=== PATIENT | male | born 1955 | race Two or more races ===

== ENCOUNTER 2023-01-27 18:58 | Inpatient (IN) | payer OTHER, MEDICARE, MEDICAID ==
[~2023-01-27] VITALS: Ht 172.7 cm; Wt 82.8 kg
[2023-01-27] MEDS ORDERED: HYDROmorphone HCL 2 MG/ML VL/or syr IM ONE (20:45)
[2023-01-27 21:17] LABS: Urine Bacteria NONE SEEN /hpf (None Seen); Urine Blood Negative /uL (Negative); Urine Hyaline Cast MANY /lpf (0 - 2); Urine WBC <1 /hpf (0 - 3)
[2023-01-27 21:29] LABS: Basophils # (auto) 0 10 ^3/uL (0-0.2); Basophils % (auto) 0.9 % (0.0-2.0); Eosinophils # (auto) 0.1 10 ^3/uL (0-0.8); Eosinophils % (auto) 4.4 % (0.0-7.0); Hematocrit 34.3 % (41.0-53.0); Hemoglobin 11.4 g/dL (13.5-17.5); Lymphocytes # (auto) 0.4 10 ^3/uL (0.4-5.4); Lymphocytes % (auto) 13.2 % (10.0-50.0); Mean Corpuscular Hemoglobin 30.3 pg (28.0-32.0); Mean Corpuscular Hgb Conc. 33.3 g/dL (32.0-36.0); Mean Corpuscular Volume 90.8 fL (80.0-100.0); Monocytes # (auto) 0.3 10 ^3/uL (0-1.3); Monocytes % (auto) 8.5 % (0.0-12.0); Neutrophils # (auto) 2.4 10 ^3/uL (1.6-8.6); Nucleated Red Blood Cells % 0.1 %; Red Blood Cells 3.78 10^6/uL (4.5-5.90); Red Cell Distribution Width 15.8 % (11.8-14.3); White Blood Cell 3.3 10^3/uL (4.4-10.8)
[2023-01-27 21:31] LABS: Potassium 4.6 mmol/L (3.5-5.1)
[2023-01-27 21:37] LABS: Albumin 2.6 g/dL (3.4-5.0); BUN/Creatinine Ratio 28.4; Bilirubin, Total 0.9 mg/dL (0.2-1.0); Calcium 7.8 mg/dL (8.5-10.1)
[2023-01-28] MEDS ORDERED: INSULIN LISPRO (HUMAN) 100 UNITS/ML ML SC ONE (00:15)
[2023-01-28] MEDS ORDERED: HYDROcodone-ACET 5/325MG TAB PO PRN (01:15)
[2023-01-28] MEDS ORDERED: METOCLOPRAMIDE HCL 5MG/ml INJ 2ml VIAL IV PRN (01:15)
[2023-01-28] MEDS ORDERED: hydrALAZINE HCL 20 MG/ML VL IV PRN (01:15)
[2023-01-28] MEDS ORDERED: ALBUMIN 25% 100 ML IV ONE (01:15)
[2023-01-28] MEDS ORDERED: FUROSEMIDE 20 MG/2 ML VIAL IV ONE (01:15)
[2023-01-28] MEDS ORDERED: DEXTROSE (50%) 50ML SYRG IV PRN (01:15)
[2023-01-28] MEDS ORDERED: DOCUSATE SOD 100 MG CAP PO PRN (01:15)
[2023-01-28] MEDS ORDERED: ACETAMINOPHEN 325 MG TAB PO PRN (01:15)
[2023-01-28] MEDS ORDERED: NITROGLYCERIN 0.4 MG SL TAB SL PRN (01:45)
[2023-01-28] MEDS ORDERED: MORPHINE SULFATE INJ 2 MG/ml SYRG IV PRN (01:45)
[2023-01-28] MEDS: HYDROmorphone HCL 2 MG/ML VL/or syr IV PRN ×4 (03:20→23:35)
[2023-01-28 05:03] LABS: Basophils # (auto) 0 10 ^3/uL (0-0.2); Basophils % (auto) 0.8 % (0.0-2.0); Eosinophils # (auto) 0.1 10 ^3/uL (0-0.8); Eosinophils % (auto) 4.9 % (0.0-7.0); Hematocrit 29.5 % (41.0-53.0); Hemoglobin 10.1 g/dL (13.5-17.5); Lymphocytes # (auto) 0.4 10 ^3/uL (0.4-5.4); Lymphocytes % (auto) 18.3 % (10.0-50.0); Mean Corpuscular Hemoglobin 30.9 pg (28.0-32.0); Mean Corpuscular Hgb Conc. 34.1 g/dL (32.0-36.0); Mean Corpuscular Volume 90.6 fL (80.0-100.0); Monocytes # (auto) 0.3 10 ^3/uL (0-1.3); Monocytes % (auto) 13.4 % (0.0-12.0); Neutrophils # (auto) 1.4 10 ^3/uL (1.6-8.6); Neutrophils % (auto) 62.6 % (37.0-80.0); Nucleated Red Blood Cells % 0.4 %; Red Blood Cells 3.25 10^6/uL (4.5-5.90); Red Cell Distribution Width 15.9 % (11.8-14.3); White Blood Cell 2.2 10^3/uL (4.4-10.8)
[2023-01-28 05:31] LABS: Albumin 2.8 g/dL (3.4-5.0); Potassium 4.5 mmol/L (3.5-5.1)
[2023-01-28 05:33] LABS: BUN/Creatinine Ratio 29.9; Calcium 8.4 mg/dL (8.5-10.1)
[2023-01-28 05:48] LABS: Bilirubin, Total 0.7 mg/dL (0.2-1.0); Total Protein 5.8 g/dL (6.4-8.2)
[2023-01-28] MEDS: SODIUM CHLOR 0.9% PF (SALINE LOCK) 10ML VIAL/SYR IV SCH ×3 (06:00→21:58)
[2023-01-28] MEDS: InsuLIN REG 1unit/0.01ml Soln (100units/ml) SC SCH ×4 (06:33→22:14)
[2023-01-28] MEDS: ACCU-CHEK COMFORT CURVE STRIP VI SCH ×4 (06:33→22:01)
[2023-01-28] MEDS: LEVOTHYROXINE SODIUM 25 MCG TAB PO SCH (07:42)
[2023-01-28] MEDS: ALBUMIN 25% 50 ML IV SCH ×3 (08:49→22:00)
[2023-01-28] MEDS ORDERED: ASPirin 81 mg TAB PO SCH (10:00)
[2023-01-28] MEDS ORDERED: FUROSEMIDE 20 MG/2 ML VIAL IV SCH (10:00)
[2023-01-28] MEDS ORDERED: CARVEDILOL 12.5 MG TAB PO SCH (10:00)
[2023-01-28] MEDS ORDERED: FAMOTIDINE (10MG/ML) 2ML VL IV SCH (10:00)
[2023-01-28 12:28] LABS: INR 1.26 (0.9-1.15); Partial Thromboplastin Time 29.4 sec (24.6-33.4)
[2023-01-28] MEDS ORDERED: ASPI-543 PO (13:47)
[2023-01-28] MEDS ORDERED: CLOP75TA28 PO (13:47)
[2023-01-28] MEDS ORDERED: FURO40TA4 PO (13:47)
[2023-01-28] MEDS ORDERED: CARV25TA55 PO (13:47)
[2023-01-28] MEDS ORDERED: ALLO100T PO (13:47)
[2023-01-28] MEDS ORDERED: CLON0.1T PO (13:47)
[2023-01-28] MEDS ORDERED: ATOR40TA52 PO (13:47)
[2023-01-28] MEDS ORDERED: FAMO20TA10 PO (13:47)
[2023-01-28] MEDS ORDERED: AMLO-489 PO (13:47)
[2023-01-28] MEDS ORDERED: TACR1CAP4 PO (13:52)
[2023-01-28] MEDS ORDERED: ISOS60TA24 PO (13:55)
[2023-01-28] MEDS ORDERED: FERR-20 PO (14:02)
[2023-01-28] MEDS: methylPREDNISolone SOD SUCC 125 MG/2 ML VL IV SCH ×2 (14:57→21:59)
[2023-01-28] MEDS ORDERED: TACROLIMUS 1 MG CAP PO ONE (16:15)
[2023-01-28 17:11] VITALS: BP 177/103
[2023-01-28 17:42] VITALS: BP 177/103
[2023-01-28] MEDS ORDERED: INSU1INJ5 SC (17:48)
[2023-01-28] MEDS ORDERED: VENL-222 PO (17:48)
[2023-01-28] MEDS ORDERED: HYDR4TAB2 PO (17:48)
[2023-01-28] MEDS ORDERED: LEVO75TA6 PO (17:48)
[2023-01-28] MEDS: LACTULOSE 20Gm/30ML SOLN PO SCH (21:59)
[2023-01-28 22:00] VITALS: BP 132/78
[2023-01-28] MEDS: cloNIDine HCL 0.1 MG TAB PO SCH (22:00)
[2023-01-28] MEDS: CARVEDILOL 12.5 MG TAB PO SCH (22:00)
[2023-01-28] MEDS: TACROLIMUS 1 MG CAP PO SCH (22:01)
[2023-01-29] MEDS: HYDROmorphone HCL 2 MG/ML VL/or syr IV PRN ×4 (04:41→22:18)
[2023-01-29 05:00] VITALS: BP 143/88
[2023-01-29] MEDS: methylPREDNISolone SOD SUCC 125 MG/2 ML VL IV SCH ×3 (06:17→22:00)
[2023-01-29] MEDS: SODIUM CHLOR 0.9% PF (SALINE LOCK) 10ML VIAL/SYR IV SCH ×3 (06:17→22:15)
[2023-01-29] MEDS: LEVOTHYROXINE SODIUM 25 MCG TAB PO SCH (06:17)
[2023-01-29] MEDS: InsuLIN REG 1unit/0.01ml Soln (100units/ml) SC SCH ×4 (06:18→22:37)
[2023-01-29] MEDS: ACCU-CHEK COMFORT CURVE STRIP VI SCH ×4 (06:18→22:18)
[2023-01-29 06:39] LABS: Mean Corpuscular Volume 90.1 fL (80.0-100.0)
[2023-01-29 06:41] LABS: Hematocrit 28.7 % (41.0-53.0); Hemoglobin 9.8 g/dL (13.5-17.5); Mean Corpuscular Hemoglobin 30.7 pg (28.0-32.0); Mean Corpuscular Hgb Conc. 34.1 g/dL (32.0-36.0); Red Blood Cells 3.18 10^6/uL (4.5-5.90); Red Cell Distribution Width 15.8 % (11.8-14.3)
[2023-01-29 06:47] LABS: Albumin 2.9 g/dL (3.4-5.0); Calcium 8.2 mg/dL (8.5-10.1); Potassium 4.9 mmol/L (3.5-5.1); White Blood Cell 1.6 10^3/uL (4.4-10.8)
[2023-01-29 06:48] LABS: Basophils % (manual) 0 (0.0-2.0); Blast Cells 0; Eosinophils % (manual) 0 (0-7); Metamyelocytes % 0; Myelocytes % 0; Promyelocytes % 0; Reactive Lymphocytes 0
[2023-01-29 06:49] LABS: BUN/Creatinine Ratio 29.7
[2023-01-29 06:51] LABS: Bilirubin, Total 0.8 mg/dL (0.2-1.0); Total Protein 5.7 g/dL (6.4-8.2)
[2023-01-29 08:01] LABS: Band Neutrophils % (manual) 14; Lymphocytes % (manual) 18 (10.0-50.0); Monocytes % (manual) 2 (0-12)
[2023-01-29 08:10] VITALS: BP 130/79
[2023-01-29] MEDS: TACROLIMUS 1 MG CAP PO SCH ×2 (09:54→22:17)
[2023-01-29] MEDS: FUROSEMIDE 40 MG TAB PO SCH (09:56)
[2023-01-29] MEDS: FAMOTIDINE 20 MG TAB PO SCH (09:56)
[2023-01-29] MEDS: ALLOPURINOL 100 MG TAB PO SCH (09:56)
[2023-01-29] MEDS: ISOSORBIDE MONONITRATE ER 60 MG TAB PO SCH (09:57)
[2023-01-29] MEDS: amLODIPine BESYLATE 5 MG TAB PO SCH (09:57)
[2023-01-29] MEDS: CARVEDILOL 12.5 MG TAB PO SCH ×2 (09:58→22:17)
[2023-01-29] MEDS: cloNIDine HCL 0.1 MG TAB PO SCH ×2 (09:58→22:16)
[2023-01-29] MEDS: ATORVASTATIN 20 MG TAB PO SCH (09:59)
[2023-01-29] MEDS: CLOPIDOGREL BISULFATE 75 MG TAB PO SCH (09:59)
[2023-01-29 10:00] VITALS: BP_SYST 114; BP_SYST 130; BP_DIAS 76; BP_DIAS 79
[2023-01-29] MEDS ORDERED: ASPirin-EC 81 mg tab PO SCH (10:00)
[2023-01-29] MEDS: LACTULOSE 20Gm/30ML SOLN PO SCH ×2 (10:00→22:00)
[2023-01-29] MEDS ORDERED: PATIENTS OWN MEDICATION (Clopidogrel Bisulfate (Plavix) 1 TAB) PO SCH (10:00)
[2023-01-29 17:00] VITALS: BP 137/84
[2023-01-29 22:00] VITALS: BP 140/90
[2023-01-30] MEDS: HYDROmorphone HCL 2 MG/ML VL/or syr IV PRN ×4 (04:12→20:18)
[2023-01-30 05:00] VITALS: BP 140/85
[2023-01-30] MEDS: methylPREDNISolone SOD SUCC 125 MG/2 ML VL IV SCH ×3 (06:00→22:01)
[2023-01-30] MEDS: SODIUM CHLOR 0.9% PF (SALINE LOCK) 10ML VIAL/SYR IV SCH ×3 (06:23→22:01)
[2023-01-30] MEDS: ACCU-CHEK COMFORT CURVE STRIP VI SCH ×4 (06:24→22:09)
[2023-01-30] MEDS: LEVOTHYROXINE SODIUM 25 MCG TAB PO SCH (06:24)
[2023-01-30] MEDS: InsuLIN REG 1unit/0.01ml Soln (100units/ml) SC SCH ×4 (06:25→22:13)
[2023-01-30 06:56] LABS: BUN/Creatinine Ratio 31.5; Calcium 8.2 mg/dL (8.5-10.1)
[2023-01-30 07:02] LABS: Potassium 5.9 mmol/L (3.5-5.1)
[2023-01-30 08:50] VITALS: BP 162/97
[2023-01-30] MEDS ORDERED: FERROUS SULFATE 325mg EC TAB PO SCH (10:00)
[2023-01-30] MEDS: amLODIPine BESYLATE 5 MG TAB PO SCH (10:37)
[2023-01-30] MEDS: ALLOPURINOL 100 MG TAB PO SCH (10:37)
[2023-01-30] MEDS: FAMOTIDINE 20 MG TAB PO SCH (10:37)
[2023-01-30] MEDS: ATORVASTATIN 20 MG TAB PO SCH (10:38)
[2023-01-30] MEDS: TACROLIMUS 1 MG CAP PO SCH (10:38)
[2023-01-30] MEDS: ISOSORBIDE MONONITRATE ER 60 MG TAB PO SCH (10:38)
[2023-01-30] MEDS: CLOPIDOGREL BISULFATE 75 MG TAB PO SCH (10:38)
[2023-01-30] MEDS: CARVEDILOL 12.5 MG TAB PO SCH ×2 (10:38→22:08)
[2023-01-30] MEDS: LACTULOSE 20Gm/30ML SOLN PO SCH ×2 (10:39→22:01)
[2023-01-30] MEDS: cloNIDine HCL 0.1 MG TAB PO SCH ×2 (10:39→22:08)
[2023-01-30] MEDS: ASPirin 81 mg TAB PO SCH (10:39)
[2023-01-30] MEDS: FUROSEMIDE 40 MG TAB PO SCH (10:39)
[2023-01-30] MEDS ORDERED: TACR0.5C3 PO (12:21)
[2023-01-30 13:00] VITALS: BP 155/87
[2023-01-30 14:38] LABS: BUN/Creatinine Ratio 31.7; Calcium 7.5 mg/dL (8.5-10.1); Potassium 4.9 mmol/L (3.5-5.1)
[2023-01-30] MEDS: SODIUM ZIRCONIUM CYCL 10 GM PAK PO SCH ×2 (16:09→22:09)
[2023-01-30 16:58] VITALS: BP 119/72
[2023-01-30] MEDS ORDERED: InsuLIN REG 1unit/0.01ml Soln (100units/ml) IV ONE (19:15)
[2023-01-30 20:00] VITALS: BP 129/76
[2023-01-30 20:55] LABS: Protein, Urine 13.2 mg/dL (0.0-11.9)
[2023-01-30 21:05] VITALS: BP 129/76
[2023-01-30] MEDS ORDERED: INSULIN LANTUS (GLARGINE) 1 /0.01ml (100units/ml) SC SCH (22:00)
[2023-01-30] MEDS: TACROLIMUS 0.5 MG CAP PO SCH (22:20)
[2023-01-31] MEDS: HYDROmorphone HCL 2 MG/ML VL/or syr IV PRN ×4 (00:25→14:12)
[2023-01-31 04:42] VITALS: BP 129/65
[2023-01-31] MEDS: SODIUM CHLOR 0.9% PF (SALINE LOCK) 10ML VIAL/SYR IV SCH ×2 (06:05→14:15)
[2023-01-31] MEDS: SODIUM ZIRCONIUM CYCL 10 GM PAK PO SCH (06:05)
[2023-01-31] MEDS: methylPREDNISolone SOD SUCC 125 MG/2 ML VL IV SCH ×2 (06:05→14:14)
[2023-01-31] MEDS: LEVOTHYROXINE SODIUM 25 MCG TAB PO SCH (06:26)
[2023-01-31] MEDS: ACCU-CHEK COMFORT CURVE STRIP VI SCH ×2 (06:27→11:25)
[2023-01-31] MEDS: InsuLIN REG 1unit/0.01ml Soln (100units/ml) SC SCH ×2 (06:28→11:38)
[2023-01-31] MEDS: CLOPIDOGREL BISULFATE 75 MG TAB PO SCH (08:54)
[2023-01-31] MEDS: ALLOPURINOL 100 MG TAB PO SCH (08:54)
[2023-01-31] MEDS: ASPirin 81 mg TAB PO SCH (08:55)
[2023-01-31] MEDS: CARVEDILOL 12.5 MG TAB PO SCH (08:57)
[2023-01-31] MEDS: ATORVASTATIN 20 MG TAB PO SCH (08:57)
[2023-01-31] MEDS: cloNIDine HCL 0.1 MG TAB PO SCH (08:58)
[2023-01-31] MEDS: FAMOTIDINE 20 MG TAB PO SCH (08:59)
[2023-01-31] MEDS: amLODIPine BESYLATE 5 MG TAB PO SCH (08:59)
[2023-01-31] MEDS: FUROSEMIDE 40 MG TAB PO SCH (08:59)
[2023-01-31 09:00] VITALS: BP 131/77
[2023-01-31] MEDS: LACTULOSE 20Gm/30ML SOLN PO SCH (09:05)
[2023-01-31] MEDS: ISOSORBIDE MONONITRATE ER 60 MG TAB PO SCH (09:06)
[2023-01-31] MEDS: TACROLIMUS 0.5 MG CAP PO SCH (09:06)
[2023-01-31 13:00] VITALS: BP 130/68
[2023-01-31 13:39] VITALS: BP 131/77
[2023-01-31 14:12] VITALS: BP 130/68
== END 2023-01-31 15:20 | disposition home or self-care (01) | DRG 433 ==
LOC: ER 18:58 → TELE 01-28 01:46 → TELE-WESTW 01-28 17:03
PROVIDERS: ADMIT Nurse Practitioner Family; ATTEND Family Medicine
PROC: 0W9G3ZZ Drainage of Peritoneal Cavity, Percutaneous Approach (ICD-10-PCS; principal; 2023-01-30)
DX: K70.31 Alcoholic cirrhosis of liver with ascites (principal); D61.818 Other pancytopenia; J44.1 Chronic obstructive pulmonary disease with (acute) exacerbation; E44.0 Moderate protein-calorie malnutrition; E87.1 Hypo-osmolality and hyponatremia; J98.11 Atelectasis; N17.9 Acute kidney failure, unspecified; Z94.4 Liver transplant status; I13.0 Hypertensive heart and chronic kidney disease with heart failure and stage 1 through stage 4 chronic kidney disease, or unspecified chronic kidney disease; R06.03 Acute respiratory distress; E03.9 Hypothyroidism, unspecified; Z20.822 Contact with and (suspected) exposure to COVID-19; E87.5 Hyperkalemia; K76.82 Hepatic encephalopathy; I50.9 Heart failure, unspecified; E11.22 Type 2 diabetes mellitus with diabetic chronic kidney disease; E88.09 Other disorders of plasma-protein metabolism, not elsewhere classified; N18.9 Chronic kidney disease, unspecified; Z68.27 Body mass index [BMI] 27.0-27.9, adult; Z79.4 Long term (current) use of insulin; I25.2 Old myocardial infarction
CPT/HCPCS: 36415; 71045; 76705; 76775; 76942; 80048; 80053; 81001; 82140; 82306; 82570; 82962; 83036; 83615; 83735; 83880; 83970; 83986; 84100; 84156; 84300; 84443; 85007; 85025; 85027; 85610; 85730; 87205; 87426; 89051; 93005; 96365; 96372; 96375; 96376; G0378; J1815; J3490; J7507; P9047